=== PATIENT | male | born 1980 | race American Indian/Alaskan Native ===

== ENCOUNTER 2017-07-25 13:59 | Outpatient (CLI) | payer OTHER ==
--- NOTE | 2017-07-25 22:48 | XRay Report ---
FINAL REPORT EXAM: XR KNEE 4+V RT HISTORY: Knee pain TECHNIQUE: Five views of the right knee: Weightbearing AP, oblique, lateral and sunrise projections. PRIORS: None. FINDINGS: Osseous mineralization is normal. There is no acute fracture or dislocation. The medial and lateral compartment joint spaces are preserved on the weight-bearing projections. There is mild medial soft tissue swelling suggested and a small volume joint effusion. Small, marginal patellofemoral osteophytes. IMPRESSION: No acute osseous abnormality. Mild patellofemoral degenerative changes. Mild medial joint line soft tissue swelling and small joint effusion. Comment: If concern for internal derangement, dedicated MRI can further evaluate.
== END 2017-07-25 14:00 | disposition home or self-care (01) ==
LOC: XRAY 13:59
PROVIDERS: ATTEND Orthopaedic Surgery Sports Medicine
DX: M17.11 Unilateral primary osteoarthritis, right knee (principal); M25.761 Osteophyte, right knee